=== PATIENT | female | born 1980 | race Asian ===

== ENCOUNTER 2017-10-27 18:28 | Emergency (ER) | payer BC, OTHER ==
[~2017-10-27] VITALS: Ht 170.2 cm; Wt 62.9 kg
[2017-10-27 18:32] VITALS: Ht 170.2 cm; Wt 62.9 kg
[2017-10-27 19:46] VITALS: TEMP 37.6
[2017-10-27] MEDS ORDERED: KETOROLAC TROMETHAMINE 30 MG/ML VIAL IV STA (19:46)
[2017-10-27] MEDS ORDERED: ACETAMINOPHEN 500 MG TAB PO STA (19:46)
[2017-10-27] MEDS ORDERED: ONDANSETRON INJ 2 MG/ML 2 ML VIAL IV STA (19:46)
--- NOTE | 2017-10-27 19:52 | EMERGENCY ROOM VISIT NOTE ---
History First contact with patient: 19:24 Chief Complaint: CHEST PAIN Stated Complaint: SOB, PAINS ON CHEST, THROAT Nursing Triage Summary: Patient had sorethroat, fever chills, cough for about 1 week. Has been On tylenol , motrin and Tamiflu. Tonight severe chest pain and SOB and became pale. Pain radiates from mid chest up throat and into right ear. Patient c/o trouble hearing out of right ear. History of Present Illness The patient is a 36 year old female who presents to the Emergency Room with complaints of flulike symptoms for the last 5 days. The patient's fever was as high as 104F. She has been alternating Tylenol and Motrin with persistent symptoms. She also complains of a sore throat, right ear pain, cough and difficulty breathing. She denies any sick contacts. She did receive her flu vaccine this year. She has seen to doctors for her symptoms. She was prescribed Hycodan cough syrup with minimal relief the patient apparently got very pale and was complaining of pain in her chest earlier this evening. The history is taken from the patient's significant other as she has lost her voice and will not talk. Review of Systems 10 system review performed and negative unless noted in HPI or below Past Medical/Surgical History Otherwise healthy Social History Smoking Status: Never Smoker Current/Historical Medications Scheduled Amoxicillin (Amoxil), 1 TAB PO BID Eye Drops (Eye Drops), 1 DROP OPB UD Oseltamivir Phosphate (Tamiflu), 1 TAB PO BID [Cough [place]], 1 DOSE PO PRN UD Scheduled PRN Acetaminophen (Tylenol), 1,000 MG PO Q6 PRN for Pain or Fever Ibuprofen (Motrin), 600 MG PO TID PRN for Pain or Fever Physical Exam Vital Signs Date Time Temp Pulse Resp B/P (MAP) Pulse Ox O2 Delivery O2 Flow Rate FiO2 10/27/17 21:52 82 16 128/72 97 Room Air 10/27/17 20:00 Room Air 10/27/17 19:56 92 10/27/17 19:46 37.6 78 17 121/73 96 Room Air 10/27/17 18:32 37.2 86 16 134/86 98 Room Air Physical Exam VITALS: Vitals are noted on the nurse's note and reviewed by myself. Vital signs stable. GENERAL: 36-year-old female, moderately acutely ill in appearance. SKIN: The skin was without rashes, erythema, edema, or bruising. HEAD: Normocephalic atraumatic. EARS: External auditory canals are clear. The right TM is erythematous, bulging with a purulent effusion. The left TM is slightly erythematous. No left sided effusion noted. The TMs are intact. EYES: Conjunctivae without injection, sclerae without icterus. Extraocular movements intact. NOSE: No sinus tenderness. MOUTH: Mucous membranes moist. Tonsils are not enlarged. Pharynx without erythema or exudate. Uvula midline. Airway patent. Tongue does not deviate. NECK: Supple without nuchal rigidity. Lymphadenopathy in the anterior cervical chain bilaterally.. Cervical spine is nontender. No JVD. HEART: Regular rate and rhythm without murmurs gallops or rubs. LUNGS: Clear to auscultation bilaterally without wheezes, rales or rhonchi. No accessory muscle use. ABDOMEN: Positive bowel sounds x 4.Soft, nontender, without organomegaly. No guarding or rebound tenderness. MUSCULOSKELETAL: No muscle atrophy, erythema, or edema noted. Strength 5/5 throughout. NEURO: Patient was alert and oriented to person place and time. Normal sensation to touch. No focal neurological deficits. Medical Decision & Procedures ER Provider Diagnostic Interpretation: CXR IMPRESSION: No acute process. Electronically signed by: Margarito Carroll M.D. 10/27/2017 8:31 PM Dictated Date/Time: 10/27/2017 8:30 PM Laboratory Results 10/27/17 19:43 Red Blood Count 4.44, Mean Corpuscular Volume 89.0, Mean Corpuscular Hemoglobin 30.0, Mean Corpuscular Hemoglobin Concent 33.7, Mean Platelet Volume 10.6, Neutrophils (%) (Auto) 69.0, Lymphocytes (%) (Auto) 20.8, Monocytes (%) (Auto) 9.0, Eosinophils (%) (Auto) 0.8, Basophils (%) (Auto) 0.1, Neutrophils # (Auto) 5.15, Lymphocytes # (Auto) 1.55, Monocytes # (Auto) 0.67, Eosinophils # (Auto) 0.06, Basophils # (Auto) 0.01 10/27/17 19:43 Test 10/27/17 19:30 10/27/17 19:43 10/27/17 21:46 Urine Color YELLOW Urine Appearance CLEAR (CLEAR) Urine pH 8.5 (4.5-7.5) Urine Specific [place] 1.012 (1.000-1.030) Urine Protein NEG (NEG) Urine Glucose (UA) NEG (NEG) Urine Ketones NEG (NEG) Urine Occult Blood 1+ (NEG) Urine Nitrite NEG (NEG) Urine Bilirubin NEG (NEG) Urine Urobilinogen NEG (NEG) Urine Leukocyte Esterase NEG (NEG) Urine WBC (Auto) 1-5 /hpf (0-5) Urine RBC (Auto) 5-10 /hpf (0-4) Urine Hyaline Casts (Auto) 0 /lpf (0-5) Urine Epithelial Cells (Auto) 10-20 /lpf (0-5) Urine Bacteria (Auto) NEG (NEG) Urine Test NEG (NEG) White Blood Count 7.46 K/uL (4.8-10.8) Red Blood Count 4.44 M/uL (4.2-5.4) Hemoglobin 13.3 g/dL (12.0-16.0) Hematocrit 39.5 % (37-47) Mean Corpuscular Volume 89.0 fL (80-100) Mean Corpuscular Hemoglobin 30.0 pg (25-34) Mean Corpuscular Hemoglobin Concent 33.7 g/dl (32-36) Platelet Count 176 K/uL (130-400) Mean Platelet Volume 10.6 fL (7.4-10.4) Neutrophils (%) (Auto) 69.0 % Lymphocytes (%) (Auto) 20.8 % Monocytes (%) (Auto) 9.0 % Eosinophils (%) (Auto) 0.8 % Basophils (%) (Auto) 0.1 % Neutrophils # (Auto) 5.15 K/uL (1.4-6.5) Lymphocytes # (Auto) 1.55 K/uL (1.2-3.4) Monocytes # (Auto) 0.67 K/uL (0.11-0.59) Eosinophils # (Auto) 0.06 K/uL (0-0.5) Basophils # (Auto) 0.01 K/uL (0-0.2) RDW Standard Deviation 39.2 fL (36.4-46.3) RDW Coefficient of Variation 12.0 % (11.5-14.5) Immature Granulocyte % (Auto) 0.3 % Immature Granulocyte # (Auto) 0.02 K/uL (0.00-0.02) Anion Gap 6.0 mmol/L (3-11) Est Creatinine Clear Calc Drug Dose 137.4 ml/min Estimated GFR () 138.7 Estimated GFR (Non- 119.7 BUN/Creatinine Ratio 5.7 (10-20) Calcium Level 9.4 mg/dl (8.5-10.1) Total Bilirubin 0.5 mg/dl (0.2-1) Aspartate Amino Transf (AST/SGOT) 18 U/L (15-37) Alanine Aminotransferase (ALT/SGPT) 20 U/L (12-78) Alkaline Phosphatase 58 U/L (45-117) Troponin I < 0.015 ng/ml (0-0.045) Total Protein 7.7 gm/dl (6.4-8.2) Albumin 3.8 gm/dl (3.4-5.0) Globulin 3.9 gm/dl (2.5-4.0) Albumin/Globulin Ratio 1.0 (0.9-2) Influenza Type A Antigen Neg for Influ A (NEG) Influenza Type B Antigen Neg for Influ B (NEG) Medications Administered Medications (Trade) Dose Ordered Sig/Fidel Route Start Time Stop Time Status Last Admin Dose Admin Sodium Chloride 1,000 ml @ 999 mls/hr Q1H1M ONCE IV 10/27/17 20:00 10/27/17 21:00 DC 10/27/17 19:57 999 MLS/HR Ondansetron HCl (Zofran Inj) 4 mg NOW STAT IV 10/27/17 19:46 10/27/17 19:49 DC 10/27/17 19:57 4 MG Ketorolac Tromethamine (Toradol Inj) 30 mg NOW STAT IV 10/27/17 19:46 10/27/17 19:49 DC 10/27/17 19:56 30 MG Acetaminophen (Tylenol Tab) 1,000 mg NOW STAT PO 10/27/17 19:46 10/27/17 19:49 DC 10/27/17 19:54 1,000 MG Amoxicillin (Amoxil Cap) 500 mg NOW ONCE PO 10/27/17 20:00 10/27/17 20:01 DC 10/27/17 19:55 500 MG Dexamethasone Sodium Phosphate (Decadron Inj) 10 mg NOW STAT IV 10/27/17 20:28 10/27/17 20:29 DC 10/27/17 20:45 10 MG Potassium Chloride (Klor-Con M10) 40 meq NOW STAT PO 10/27/17 21:48 10/27/17 21:49 DC 10/27/17 21:55 40 MEQ ECG Indication: chest pain Rate (beats per minute): 82 Rhythm: normal sinus ED Course Patient was seen and examined Vital signs including blood pressure were reviewed medications list was verified with patient Labs were obtained, and a saline lock was established An EKG was reviewed by me and my supervising physician The patient was medicated with Toradol, Tylenol, Zofran and hydrated with 1 L of normal saline Imaging was performed and reviewed Upon reevaluation, the patient was much more comfortable. We discussed her workup. She voiced understanding. She was given 1 dose of amoxicillin. She was also given a dose of potassium. I reviewed discharge instructions the patient. They voiced understanding and had no further questions. Medical Decision Differential diagnosis: Bronchitis, pneumonia, strep pharyngitis, viral pharyngitis, influenza , otitis media, sinusitis, meningitis This patient is a 36-year-old female that presents to the emergency department with flulike symptoms and fever for the last 5 days. On exam, she was mildly acutely ill. She did not have any signs of meningismus. Her right TM was significantly erythematous, bulging with a purulent effusion. I believe this is likely a viral illness that has led her to otitis media. I will treat the patient with a course of antibiotics for 10 days. The patient did have an episode of chest pain around 3:00 this afternoon. EKG was performed. No signs of ischemia were noted. Her troponin is negative. I do not suspect a pulmonary embolus that she does not have any difficulty breathing. She is not hypoxic. This is likely due to coughing. I believe she is stable to be discharged home with close follow-up. She and her significant other are comfortable with this plan, and she was discharged in good condition she will return with any worsening symptoms. This chart was completed in part utilizing [employer] Voice Recognition software. Attempts were made to minimize the grammatical errors, random word insertions, pronoun errors and incomplete sentences. Any formal questions or concerns about the content, text or information contained within the body of this dictation should be directly addressed to the provider for clarification. Medication Reconcilliation Current Medication List: was personally reviewed by me Blood Pressure Screening Patient's blood pressure: Normal blood pressure Impression Primary Impression: Otitis media Additional Impression: Viral syndrome Departure Information Dispostion Home / Self-Care Condition [employer] Prescriptions Amoxicillin (AMOXIL) 875 Mg Tab 1 TAB PO BID for 10 Days, #20 TAB Prov: Rosa Kennedy PA-C 10/27/17 Referrals No Doctor, Assigned (PCP) Patient Instructions ED Otitis Media Acute Adult, My [facility] Additional Instructions You have been evaluated in the emergency department for flulike symptoms and fever. Although this is likely viral, it has led to a bacterial ear infection. Please take the entire course of antibiotics. It is very important to follow up closely with her primary care physician. Please call tomorrow morning for a follow-up appointment. Please stay well hydrated. I would recommend sports drinks such as Gatorade. Ibuprofen 800 mg and/or Tylenol 1000 mg every 8 hours for pain and fever You may also alternate these medications for more effective pain relief: Ibuprofen --4 HRS--> Tylenol --4 HRS--> ibuprofen --4 HRS--> Tylenol .... Please do not hesitate to return to the emergency department with any new, worsening or concerning symptoms Problem Qualifiers
[2017-10-27 19:53] LABS: BASO % 0.1 %; BASO ABS # 0.01 K/uL (0-0.2); EOS % 0.8 %; EOS ABS # 0.06 K/uL (0-0.5); HEMATOCRIT 39.5 % (37-47); HEMOGLOBIN 13.3 g/dL (12.0-16.0); IG# 0.02 K/uL (0.00-0.02); LYMPH % 20.8 %; LYMPH ABS # 1.55 K/uL (1.2-3.4); MEAN CORPUSCULAR HGB CONC 33.7 g/dl (32-36); MEAN PLATELET VOLUME 10.6 fL (7.4-10.4); MONO ABS # 0.67 K/uL (0.11-0.59); NEUT ABS # 5.15 K/uL (1.4-6.5); PLATELET COUNT 176 K/uL (130-400); RED CELL DISTRIBUTION WIDTH SD 39.2 fL (36.4-46.3); WHITE BLOOD COUNT 7.46 K/uL (4.8-10.8)
[2017-10-27] MEDS ORDERED: OSEL30CA PO (19:54)
[2017-10-27] MEDS ORDERED: SODIUM CHLORIDE 0.9% 1000ML 1,000 ML IV ONE (20:00)
[2017-10-27] MEDS ORDERED: AMOXICILLIN 250 MG CAP PO ONE (20:00)
[2017-10-27] MEDS ORDERED: COUGH SURUP PO (20:02)
[2017-10-27] MEDS ORDERED: IBUP600T44 PO (20:02)
[2017-10-27] MEDS ORDERED: EYED OPB (20:02)
[2017-10-27] MEDS ORDERED: ACET-1256 PO (20:02)
[2017-10-27 20:11] LABS: ALBUMIN 3.8 gm/dl (3.4-5.0); ALT/SGPT 20 U/L (12-78); BLOOD UREA NITROGEN 3 mg/dl (7-18); CALCIUM 9.4 mg/dl (8.5-10.1); CARBON DIOXIDE 28 mmol/L (21-32); CREATININE 0.54 mg/dl (0.60-1.20); GLUCOSE 95 mg/dl (70-99); POTASSIUM 3.3 mmol/L (3.5-5.1); SODIUM 139 mmol/L (136-145)
[2017-10-27 20:16] LABS: ALKALINE PHOSPHATASE 58 U/L (45-117); AST/SGOT 18 U/L (15-37); TOTAL PROTEIN 7.7 gm/dl (6.4-8.2)
[2017-10-27] MEDS ORDERED: DEXAMETHASONE SOD INJ 4 MG/ML VIAL IV STA (20:28)
--- NOTE | 2017-10-27 20:33 | DIAGNOSTIC IMAGING REPORT ---
CHEST 2 VIEWS ROUTINE HISTORY: Atypical chest pain. Short of breath. COMPARISON: None. FINDINGS: No pneumothorax. No pleural effusions. The heart is normal in size. No focal lung consolidations to suggest pneumonia. Symmetric nodular densities within the mid lung zones are consistent with nipple shadows. No fractures within the visualized osseous structures. IMPRESSION: No acute process. Electronically signed by: Margarito Carroll M.D. 10/27/2017 8:31 PM Dictated Date/Time: 10/27/2017 8:30 PM
[2017-10-27] MEDS ORDERED: AMOX875T3 PO (21:45)
[2017-10-27] MEDS ORDERED: POTASSIUM CHLORIDE 10 MEQ TABCR PO STA (21:48)
[2017-10-27 21:52] VITALS: BP 128/72; PULSE 82; O2SAT 97
[2017-10-27 22:35] LABS: INFLUENZA B ANTIGEN Neg for Influ B (NEG)
== END 2017-10-27 22:20 | disposition home or self-care (01) ==
LOC: C.EDB 18:29
DX: H65.91 Unspecified nonsuppurative otitis media, right ear (principal); B34.9 Viral infection, unspecified; J02.9 Acute pharyngitis, unspecified

== ENCOUNTER 2017-10-29 19:58 | Emergency (ER) | payer OTHER ==
[~2017-10-29] VITALS: Ht 170.2 cm; Wt 69.2 kg
[~2017-10-29 19:58] MED LIST: ACET-1256 PO; AMOX875T3 PO; COUGH SURUP PO; EYED OPB; IBUP600T44 PO; OSEL30CA PO
[2017-10-29 20:04] VITALS: Ht 170.2 cm; Wt 69.2 kg
[2017-10-29] MEDS ORDERED: CEFD300C2 PO ×2 (20:25→20:44)
[2017-10-29] MEDS ORDERED: NORCO 5/325MG HOME PACK PO ONE (20:30)
[2017-10-29] MEDS ORDERED: CEFTRIAXONE SOD 350MG/ML 1 GM VIAL IM ONE (20:30)
[2017-10-29 20:47] VITALS: BP 113/76; PULSE 80; TEMP 36.6; O2SAT 97
--- NOTE | 2017-10-30 19:53 | EMERGENCY ROOM VISIT NOTE ---
History First contact with patient: 20:07 Chief Complaint: FLU LIKE SX Stated Complaint: FLU,EAR INFECTION,TREATED 2 DAYSAGO NOT ANY BETTER History of Present Illness The patient is a 36 year old female who presents to the Emergency Room with complaints of persistent and worsening ear pain. The patient has multiple recent physician appointments. She was initially seen Monday and Monday (6 and 4 days ago) at her primary care physician's office where she was diagnosed with the flu and started on Tamiflu. By Monday, 2 days ago, she came into the emergency department where she had an extensive workup, where ultimately was determined that she had otitis media. She states that today her pain is intolerable and rated a 10/10. She has not been able to sleep because of her pain. The patient has not had fever and has evidently been taking amoxicillin without relief of symptoms. She has completed her Tamiflu. Review of Systems More than 10 systems were reviewed and otherwise negative with the exception of history of present illness. Past Medical/Surgical History No chronic medical disease Family History No pertinent family history Social History Smoking Status: Never Smoker Occupation Status: employed Current/Historical Medications Scheduled Amoxicillin (Amoxil), 1 TAB PO BID Cefdinir (Omnicef), 300 MG PO Q12H Cefdinir (Omnicef), 300 MG PO Q12H Eye Drops (Eye Drops), 1 DROP OPB UD Oseltamivir Phosphate (Tamiflu), 1 TAB PO BID [Cough [place]], 1 DOSE PO PRN UD Scheduled PRN Acetaminophen (Tylenol), 1,000 MG PO Q6 PRN for Pain or Fever Ibuprofen (Motrin), 600 MG PO TID PRN for Pain or Fever Physical Exam Vital Signs Date Time Temp Pulse Resp B/P (MAP) Pulse Ox O2 Delivery O2 Flow Rate FiO2 10/29/17 20:47 36.6 80 18 113/76 97 10/29/17 20:04 36.6 74 18 97 Room Air Physical Exam VITALS: Vitals are noted on the nurse's note and reviewed by myself. Vital signs stable. GENERAL: Well-developed, well-nourished, female, who is in no acute distress and resting comfortably. Patient is cooperative with the examination. HEAD: Normocephalic atraumatic. EARS: External ear normal. External auditory canals clear. The right tympanic membrane is bulging and erythematous with purulent-appearing and materiall behind the tympanic membrane. The left tympanic membrane is erythematous. No mastoid tenderness. EYES: Pupils equal round and reactive to light and accommodation. Conjunctivae without injection, sclerae without icterus. Extraocular movements intact. NOSE: Patent, turbinates without inflammation or discharge. MOUTH: Mucous membranes moist. Tonsils are not enlarged. Pharynx without erythema, blood, or exudate. Uvula midline. Airway patent. NECK: Supple without nuchal rigidity. No lymphadenopathy. No thyromegaly. Cervical spine is nontender. HEART: Regular rate and rhythm without murmurs gallops or rubs. LUNGS: Clear to auscultation bilaterally without wheezes, rales or rhonchi. No retractions or accessory muscle use. Medical Decision & Procedures Medications Administered Medications (Trade) Dose Ordered Sig/Fidel Route Start Time Stop Time Status Last Admin Dose Admin Ceftriaxone Sodium (Rocephin Im) 1,000 mg NOW ONCE IM 10/29/17 20:30 10/29/17 20:31 DC 10/29/17 20:39 1,000 MG Acetaminophen/ Hydrocodone Bitart ([place] 5/325mg Home Pack) 1 homepack UD ONCE PO 10/29/17 20:30 10/29/17 20:31 DC 10/29/17 20:39 1 HOMEPACK ED Course Physical exam and history were performed. Nursing notes, EMR, and Medication List were personally reviewed. Patient appears to have a bilateral otitis media on examination. I reviewed her visit note from a few days ago, and based on that visit her ears seemed to be progressively worsening as opposed to improving. The patient was given 1 g IM Rocephin here in the department. I will transition her to Omnicef for her infection. The patient will also be given a home pack of Vicodin to help with rest tonight. She should follow with her primary care physician for a recheck of her symptoms. She was otherwise invited back with any new, worsening, or concerning symptoms. The chart was completed utilizing [employer] Voice Recognition Software. Grammatical errors, random word insertions, pronoun errors, and incomplete sentences are an occasional consequence of this system due to software limitations, ambient noise, and hardware issues. Any formal questions or concerns about the content, text, or information contained within the body of this dictation should be directly addressed to the provider for clarification. . Medical Decision Differential diagnosis: Etiologies such as viral syndrome, otitis, pharyngitis, pneumonia, influenza, meningitis, urinary tract infection, sepsis, bacteremia, as well as others were entertained. Impression Primary Impression: Bilateral otitis media Departure Information Dispostion Home / Self-Care Condition GOOD Prescriptions Cefdinir (OMNICEF) 300 Mg Cap 300 MG PO Q12H for 9 Days, #18 CAP Prov: Josue Walsh PA-C 10/29/17 Cefdinir (OMNICEF) 300 Mg Cap 300 MG PO Q12H for 9 Days, #18 CAP . Prov: Josue Walsh PA-C 10/29/17 Forms HOME CARE DOCUMENTATION FORM, IMPORTANT VISIT INFORMATION Patient Instructions My [facility] Additional Instructions You were seen and evaluated today on an emergency basis only. This is not a substitute for, or an effort to provide, complete comprehensive medical care. It is not possible to recognize and treat all injuries or illnesses in a single emergency department visit. For this reason it is recommended that you followup with your primary care physician this week for recheck of your condition. For baseline pain relief you may alternate ibuprofen and acetaminophen every 4 hours for pain control. Take 600 mg ibuprofen (Advil) and then 4 hours later take 1000 mg acetaminophen (Tylenol). Do not take more than 3000 mg acetaminophen in a single day. [place] (hydrocodone/acetaminophen) 5/325 mg (homepack) every 6 hours as needed for worsening breakthrough pain. Do not drink or drive on [place]. This medication will likely make you tired. Do not take [place] and Tylenol at the same time as both contain acetaminophen. [place] may cause constipation. You may wish to take an [id number] stool softener like Colace if this occurs. Take Omnicef 300 mg twice daily for the next 9 days Discontinue the amoxicillin You are welcome to return to the emergency department anytime with new, worsening, or concerning symptoms.
== END 2017-10-29 20:48 | disposition home or self-care (01) ==
LOC: C.EDB 19:59 → C.EDD 20:48
DX: H66.93 Otitis media, unspecified, bilateral (principal)

== ENCOUNTER 2017-12-11 21:46 | Emergency (ER) | payer OTHER ==
[~2017-12-11] VITALS: Ht 170.2 cm; Wt 63.1 kg
[~2017-12-11 21:46] MED LIST changes: -AMOX875T3 PO; +CEFD300C2 PO
[2017-12-11 21:53] VITALS: Ht 170.2 cm; Wt 63.1 kg
[2017-12-11] MEDS ORDERED: ONDANSETRON INJ 2 MG/ML 2 ML VIAL IV STA (22:22)
[2017-12-11] MEDS ORDERED: MoRPHine SULFATE 4 MG/ML 1 ML CARP\\VIAL IV STA (22:22)
[2017-12-11] MEDS ORDERED: SODIUM CHLORIDE 0.9% 1000ML 1,000 ML IV STA (22:22)
[2017-12-11 22:42] LABS: BASO % 0.2 %; BASO ABS # 0.01 K/uL (0-0.2); EOS % 0.5 %; EOS ABS # 0.03 K/uL (0-0.5); HEMATOCRIT 35.5 % (37-47); IG# 0.01 K/uL (0.00-0.02); LYMPH % 7.1 %; LYMPH ABS # 0.46 K/uL (1.2-3.4); MEAN CELL VOLUME 89.4 fL (80-100); MEAN CORPUSCULAR HEMOGLOBIN 30.2 pg (25-34); MEAN CORPUSCULAR HGB CONC 33.8 g/dl (32-36); MEAN PLATELET VOLUME 10.7 fL (7.4-10.4); MONO % 0.5 %; MONO ABS # 0.03 K/uL (0.11-0.59); NEUT % 91.5 %; NEUT ABS # 5.91 K/uL (1.4-6.5); PLATELET COUNT 122 K/uL (130-400); RED CELL DISTRIBUTION WIDTH CV 12.6 % (11.5-14.5); RED CELL DISTRIBUTION WIDTH SD 41.3 fL (36.4-46.3); WHITE BLOOD COUNT 6.45 K/uL (4.8-10.8)
--- NOTE | 2017-12-11 22:58 | DIAGNOSTIC IMAGING REPORT ---
ABDOMEN AND PELVIS CT WITHOUT CONTRAST CT DOSE: 841.28 mGy.cm HISTORY: uti, severe right flank pain TECHNIQUE: Multiaxial CT images of the abdomen and pelvis were performed without the use of intravenous and oral contrast according to the standard department stone protocol. A dose lowering technique was utilized adhering to the principles of ALARA. COMPARISON STUDY: None. FINDINGS: No renal or ureteral stones. Mild fullness within the right renal collecting system and right ureter without nirmal hydronephrosis. There is urothelial thickening within the right renal pelvis and right ureter with mild right periureteral edema. There is also moderate the bladder with surrounding inflammatory change. Normal left kidney. Calcification within the left deep pelvis consistent with phleboliths. A 2.3 cm right ovarian cyst. The uterus and left ovary are unremarkable. Suboptimal evaluation for bowel pathology due to the lack of intravenous and oral contrast. However, there is no definite bowel wall thickening or obstruction. Normal appendix. The lung bases are essentially clear. The unenhanced liver, spleen, adrenal glands, pancreas, and gallbladder are unremarkable. No significant retroperitoneal lymphadenopathy. IMPRESSION: 1. Moderate bladder wall thickening with surrounding fat stranding consistent with a cystitis. 2. There is also urothelial thickening within the right renal pelvis and right ureter with mild surrounding inflammatory change and mild fullness within the right renal collecting system. No nirmal hydronephrosis. This is consistent with a pyelitis/pyelonephritis. 3. No renal or ureteral stones. Electronically signed by: Margarito Carroll M.D. 12/11/2017 10:57 PM Dictated Date/Time: 12/11/2017 10:49 PM
[2017-12-11 23:01] LABS: ALBUMIN 3.6 gm/dl (3.4-5.0); CALCIUM 8.8 mg/dl (8.5-10.1); CREATININE 0.6 mg/dl (0.60-1.20); POTASSIUM 3.5 mmol/L (3.5-5.1)
[2017-12-11 23:03] LABS: TOTAL PROTEIN 6.7 gm/dl (6.4-8.2)
[2017-12-11] MEDS ORDERED: CEFTRIAXONE SOD INJ 1 GM ADDVIAL IV STA (23:05)
[2017-12-11] MEDS ORDERED: CIPR-304 PO (23:34)
[2017-12-11] MEDS ORDERED: PHEN95TA14 PO (23:35)
[2017-12-11 23:55] VITALS: TEMP 37.4
[2017-12-12] MEDS ORDERED: ONDA4TAB10 SL (00:28)
[2017-12-12] MEDS ORDERED: HYDR-5688 PO (00:28)
--- NOTE | 2017-12-12 00:29 | EMERGENCY ROOM VISIT NOTE ---
History First contact with patient: 22:08 Chief Complaint: URINARY SYMPTOMS Stated Complaint: INFECTION OF KIDNEY Nursing Triage Summary: Pt reports UTI starting Monday and PCP concerned for kidney infection. Placed on Cipro and using ibuprofen and tylenol. To have CT scan, but office closed. Told to come to ER if symptoms worsened. Pt reports high fever despite using Tylenol at 2100 and Iuprofen at 1830. Reporting right flank/back pain rated 9/10 with movement. History of Present Illness The patient is a 36 year old female who presents to the Emergency Room with complaints of right flank pain and urinary symptoms. The patient reports that she began having dysuria 3 days ago. The next day, she developed some cramping pain in her abdomen as well as right flank pain. She states the pain became severe throughout the day today, prompting her to go to her primary care provider's office. She states that they did a urinalysis there which confirmed she had a urinary tract infection. She was given ciprofloxacin and Azo. She has taken a dose of the antibiotics, Tylenol and ibuprofen tonight. They retook her temperature and it was 39.7C. She states she was told to come here if her fever worsened. She states the pain is in her right flank and she has a cramping pain in her abdomen. She rates the discomfort a 9/10. She denies changes in her bowel movements or vomiting. She has had some mild nausea. Review of Systems A complete 10 point review of systems was reviewed with the patient with pertinent positives and negatives as per history of present illness. All else were negative. Past Medical/Surgical History Medical Problems: (1) No significant active problems Surgical Problems: (1) No significant past surgical history Social History Smoking Status: Never Smoker Housing Status: lives with significant other Occupation Status: employed Current/Historical Medications Scheduled Ciprofloxacin HCl (Ciprofloxacin), 500 MG PO Q12 Ondasetron Odt (Zofran Odt), 4 MG SL Q6H Phenazopyridine Hcl (Azo Tabs), 1 DOSE PO DAILY Scheduled PRN Acetaminophen (Tylenol), 1,000 MG PO Q6 PRN for Pain or Fever Hydrocodone/Acetaminophen 5MG/325MG (Jackson 5MG/325MG), 1-2 TABLET PO Q4H PRN for Pain Ibuprofen (Motrin), 600 MG PO TID PRN for Pain or Fever Physical Exam Vital Signs Date Time Temp Pulse Resp B/P (MAP) Pulse Ox O2 Delivery O2 Flow Rate FiO2 12/12/17 00:36 80 20 114/72 98 12/11/17 23:55 37.4 68 20 114/59 99 Room Air 12/11/17 21:53 37.9 98 16 118/70 97 Room Air Physical Exam VITALS: Vitals are noted on the nurse's note and reviewed by myself. Vital signs stable. GENERAL: This is a 36-year-old female, in no acute distress, nontoxic in appearance, well-developed well-nourished. SKIN: The skin was without rashes. EARS: External auditory canals clear, tympanic membranes pearly cotton without erythema or effusion bilaterally. EYES: Pupils equal round and reactive to light and accommodation. MOUTH: Mucous membranes moist. NECK: Supple without nuchal rigidity. HEART: Regular rate and rhythm without murmurs gallops or rubs. LUNGS: Clear to auscultation bilaterally without wheezes, rales or rhonchi. ABDOMEN: Positive bowel sounds x 4. Soft, mild tenderness in the right lower abdomen. No guarding or rebound tenderness. Positive right CVA tenderness. NEURO: Patient was alert and oriented to person place and time. Medical Decision & Procedures ER Provider Diagnostic Interpretation: ABDOMEN AND PELVIS CT WITHOUT CONTRAST CT DOSE: 841.28 mGy.cm HISTORY: uti, severe right flank pain TECHNIQUE: Multiaxial CT images of the abdomen and pelvis were performed without the use of intravenous and oral contrast according to the standard department stone protocol. A dose lowering technique was utilized adhering to the principles of ALARA. COMPARISON STUDY: None. FINDINGS: No renal or ureteral stones. Mild fullness within the right renal collecting system and right ureter without nirmal hydronephrosis. There is urothelial thickening within the right renal pelvis and right ureter with mild right periureteral edema. There is also moderate the bladder with surrounding inflammatory change. Normal left kidney. Calcification within the left deep pelvis consistent with phleboliths. A 2.3 cm right ovarian cyst. The uterus and left ovary are unremarkable. Suboptimal evaluation for bowel pathology due to the lack of intravenous and oral contrast. However, there is no definite bowel wall thickening or obstruction. Normal appendix. The lung bases are essentially clear. The unenhanced liver, spleen, adrenal glands, pancreas, and gallbladder are unremarkable. No significant retroperitoneal lymphadenopathy. IMPRESSION: 1. Moderate bladder wall thickening with surrounding fat stranding consistent with a cystitis. 2. There is also urothelial thickening within the right renal pelvis and right ureter with mild surrounding inflammatory change and mild fullness within the right renal collecting system. No nirmal hydronephrosis. This is consistent with a pyelitis/pyelonephritis. 3. No renal or ureteral stones. Laboratory Results 12/11/17 22:25 Red Blood Count 3.97, Mean Corpuscular Volume 89.4, Mean Corpuscular Hemoglobin 30.2, Mean Corpuscular Hemoglobin Concent 33.8, Mean Platelet Volume 10.7, Neutrophils (%) (Auto) 91.5, Lymphocytes (%) (Auto) 7.1, Monocytes (%) (Auto) 0.5, Eosinophils (%) (Auto) 0.5, Basophils (%) (Auto) 0.2, Neutrophils # (Auto) 5.91, Lymphocytes # (Auto) 0.46, Monocytes # (Auto) 0.03, Eosinophils # (Auto) 0.03, Basophils # (Auto) 0.01 12/11/17 22:25 Test 12/11/17 22:25 White Blood Count 6.45 K/uL (4.8-10.8) Red Blood Count 3.97 M/uL (4.2-5.4) Hemoglobin 12.0 g/dL (12.0-16.0) Hematocrit 35.5 % (37-47) Mean Corpuscular Volume 89.4 fL (80-100) Mean Corpuscular Hemoglobin 30.2 pg (25-34) Mean Corpuscular Hemoglobin Concent 33.8 g/dl (32-36) Platelet Count 122 K/uL (130-400) Mean Platelet Volume 10.7 fL (7.4-10.4) Neutrophils (%) (Auto) 91.5 % Lymphocytes (%) (Auto) 7.1 % Monocytes (%) (Auto) 0.5 % Eosinophils (%) (Auto) 0.5 % Basophils (%) (Auto) 0.2 % Neutrophils # (Auto) 5.91 K/uL (1.4-6.5) Lymphocytes # (Auto) 0.46 K/uL (1.2-3.4) Monocytes # (Auto) 0.03 K/uL (0.11-0.59) Eosinophils # (Auto) 0.03 K/uL (0-0.5) Basophils # (Auto) 0.01 K/uL (0-0.2) RDW Standard Deviation 41.3 fL (36.4-46.3) RDW Coefficient of Variation 12.6 % (11.5-14.5) Immature Granulocyte % (Auto) 0.2 % Immature Granulocyte # (Auto) 0.01 K/uL (0.00-0.02) Urine Color DK YELLOW Urine Appearance CLEAR (CLEAR) Urine pH 6.5 (4.5-7.5) Urine Specific [place] 1.012 (1.000-1.030) Urine Protein 1+ (NEG) Urine Glucose (UA) NEG (NEG) Urine Ketones NEG (NEG) Urine Occult Blood 3+ (NEG) Urine Nitrite POS (NEG) Urine Bilirubin NEG (NEG) Urine Urobilinogen NEG (NEG) Urine Leukocyte Esterase MODERATE (NEG) Urine WBC (Auto) >30 /hpf (0-5) Urine RBC (Auto) >30 /hpf (0-4) Urine Hyaline Casts (Auto) 1-5 /lpf (0-5) Urine Epithelial Cells (Auto) 5-10 /lpf (0-5) Urine Bacteria (Auto) NEG (NEG) Urine Yeast (Auto) PRESENT (NONE PRSENT) Urine Test NEG (NEG) Anion Gap 8.0 mmol/L (3-11) Est Creatinine Clear Calc Drug Dose 123.7 ml/min Estimated GFR () 134.0 Estimated GFR (Non- 115.6 BUN/Creatinine Ratio 28.4 (10-20) Calcium Level 8.8 mg/dl (8.5-10.1) Total Bilirubin 0.5 mg/dl (0.2-1) Aspartate Amino Transf (AST/SGOT) 11 U/L (15-37) Alanine Aminotransferase (ALT/SGPT) 15 U/L (12-78) Alkaline Phosphatase 43 U/L (45-117) Total Protein 6.7 gm/dl (6.4-8.2) Albumin 3.6 gm/dl (3.4-5.0) Globulin 3.1 gm/dl (2.5-4.0) Albumin/Globulin Ratio 1.2 (0.9-2) Medications Administered Medications (Trade) Dose Ordered Sig/Fidel Route Start Time Stop Time Status Last Admin Dose Admin Sodium Chloride 1,000 ml @ 999 mls/hr Q1H1M STAT IV 12/11/17 22:22 12/11/17 23:22 DC 12/11/17 22:34 999 MLS/HR Ondansetron HCl (Zofran Inj) 4 mg NOW STAT IV 12/11/17 22:22 12/11/17 22:24 DC 12/11/17 22:35 4 MG Morphine Sulfate (MoRPHine SULFATE INJ) 4 mg NOW STAT IV 12/11/17 22:22 12/11/17 22:24 DC 12/11/17 22:35 4 MG Ceftriaxone Sodium (Rocephin Inj) 1 gm NOW STAT IV 12/11/17 23:05 12/11/17 23:06 DC 12/11/17 23:12 1 GM Ondansetron HCl (ZOFRAN ODT 4MG Home Pack) 1 homepack UD ONCE PO 12/12/17 00:30 3 00:31 DC 12/12/17 00:34 1 HOMEPACK Acetaminophen/ Hydrocodone Bitart (Jackson 5/325mg Home Pack) 1 homepack UD ONCE PO 12/12/17 00:30 12/12/17 00:31 DC 12/12/17 00:34 1 HOMEPACK ED Course The patient was evaluated as above. Labs were drawn and IV access was obtained. Patient was medicated with 1 L normal saline solution, 4 mg morphine IV and [address] of the abdomen and pelvis was performed and read by radiology as above. Patient was reevaluated and findings were discussed. She is feeling much better. Discharge instructions were reviewed with the patient. The patient verbalized understanding of my assessment and treatment plan and was discharged home in good condition. Medical Decision Differential diagnosis includes kidney stone, pyelonephritis, UTI, appendicitis , cholecystitis, among others. The patient is a 36-year-old female who presents today complaining of flank pain and urinary symptoms. Labs revealed no leukocytosis or significant anemia. Creatinine was within normal limits. CT was performed and showed no evidence of kidney stone. Urinalysis was suggestive of infection, with positive nitrite, leukocyte esterase, WBCs. Culture is pending. Urine was negative. Patient was given a dose of IV Rocephin. She is not vomiting. Fever improved after treatment with Toradol. Patient will continue the ciprofloxacin prescribed to her and was instructed to follow-up with her PCP for recheck. She was advised to return here with worsening symptoms. The patient's case was reviewed with Dr. Mcneil, ED attending physician, who agreed with my assessment and treatment plan. Based on the patient's presentation and work up, I feel the patient is stable for outpatient treatment. The patient was educated to return to the emergency department for any worsening of their current condition or new/concerning symptoms. She will follow up with her PCP. Medication Reconcilliation Current Medication List: was personally reviewed by me Blood Pressure Screening Patient's blood pressure: Normal blood pressure Impression Primary Impression: Pyelonephritis Departure Information Dispostion Home / Self-Care Condition GOOD Prescriptions Hydrocodone/Acetaminophen 5MG/325MG (Jackson 5MG/325MG) Tab 1-2 TABLET PO Q4H Y for Pain, #12 TAB For Initial Treatment Prov: Clarita Stinson PA-C 12/12/17 Ondasetron Odt (ZOFRAN ODT) 4 Mg Tab 4 MG SL Q6H for Nausea, #12 TAB Prov: Clarita Stinson PA-C 12/12/17 Referrals Jude Oro M.D. (PCP) Patient Instructions My [facility] Additional Instructions You have been treated in the Emergency Department today for a Kidney infection. You have received pain medicine in the emergency department which impairs your ability to operate a vehicle. It is illegal for you to drive after receiving these medicines. Continue the ciprofloxacin as prescribed. You have been prescribed Jackson to be used for pain control. This is a narcotic medication. You cannot drive or consume alcohol while on this medicine. This medicine should only be used for pain that cannot be controlled with over-the- counter pain medicines. You have been prescribed Zofran to be used for any nausea or vomiting. Take as prescribed. For pain control, you can use the following [id number] medicines (if >12 yo): - Regular strength (325mg/tab) Tylenol (acetaminophen) 2 tabs every 4-6 hours as needed. Do not exceed 12 tablets in a 24 hour period. Avoid taking more than 4 grams (4000 mg) of Tylenol per day. This includes any other sources of acetaminophen you may take on a regular basis. - Regular strength (200 mg/tab) Advil (ibuprofen) 1-2 tabs every 4-6 hours as needed. Do not exceed a dose of 3200 mg per day. Return to the emergency department with worsening pain, vomiting not controlled by the medication, dizziness/lightheadedness or other new/concerning symptoms.
[2017-12-12] MEDS ORDERED: ONDANSETRON HOME PACK 4MG OD TAB PO ONE (00:30)
[2017-12-12] MEDS ORDERED: NORCO 5/325MG HOME PACK PO ONE (00:30)
[2017-12-12 00:36] VITALS: BP 114/72; PULSE 80; O2SAT 98
== END 2017-12-12 00:38 | disposition home or self-care (01) ==
LOC: C.EDB 21:46 → C.EDA 12-12 00:38
DX: N12 Tubulo-interstitial nephritis, not specified as acute or chronic (principal)

== ENCOUNTER 2017-12-14 21:04 | Inpatient (IN) | payer OTHER ==
[~2017-12-14] VITALS: Ht 170.2 cm; Wt 61.9 kg
[~2017-12-14 21:04] MED LIST changes: -CEFD300C2 PO; +CIPR-304 PO; -COUGH SURUP PO; -EYED OPB; +HYDR-5688 PO; +ONDA4TAB10 SL; -OSEL30CA PO; +PHEN95TA14 PO
[2017-12-14 21:30] VITALS: BP 118/79; PULSE 68; TEMP 37.2; O2SAT 96; Ht 170.2 cm; Wt 61.9 kg
[2017-12-14] MEDS ORDERED: ONDANSETRON INJ 2 MG/ML 2 ML VIAL IV PRN (22:00)
[2017-12-14] MEDS ORDERED: ALUMINUM/MAGNESIUM/SIMETH (MAALOX MAX) 30 ML UDC PO PRN (22:00)
[2017-12-14] MEDS ORDERED: ZOLPIDEM TARTRATE 5 MG TAB PO PRN (22:00)
[2017-12-14] MEDS ORDERED: IBUPROFEN 600 MG TAB PO PRN (22:00)
[2017-12-14] MEDS ORDERED: POLYETHYLENE (MIRALAX) 17 GM PACK PO PRN (22:00)
[2017-12-14] MEDS ORDERED: HYDROCODONE/ACETAMIN 5/325MG TAB PO PRN (22:00)
[2017-12-14] MEDS ORDERED: ACETAMINOPHEN 325 MG TAB PO PRN (22:00)
[2017-12-14] MEDS ORDERED: MAGNESIUM HYDROXIDE SUSP 30 ML UDC PO PRN (22:00)
[2017-12-14] MEDS ORDERED: MoRPHine SULFATE 2 MG/ML CARP IV PRN (22:00)
--- NOTE | 2017-12-14 22:07 | History and Physical ---
History & Physical Date & Time of Service: Dec 14, 2017 at 21:57 Chief Complaint: Pyelonephritis Primary Care Physician: No Doctor, Assigned History of Present Illness Source: patient 36 y/o F Hx renal calculi. Presented to the ER a few days prior for dysuria, R back pain, fevers, rigors. She was diagnosed with pyelonephritis and placed on Cipro. Despite compliance she continues to spike fevers. She returned visited her primary MD today and was referred to the hospital for IV antibiotics due to Cipro failure. A CT abdomen obtained on 12/11 was consistent with early R pyelonephritis. The pot has not had nausea or vomiting. Past Medical/Surgical History Renal calculi Social History Smoking Status: Never Smoker Occupational Status: employed Allergies Coded Allergies: No Known Allergies (Unverified , 10/27/17) Home Medications Scheduled Ciprofloxacin HCl (Ciprofloxacin), 500 MG PO Q12 Ondasetron Odt (Zofran Odt), 4 MG SL Q6H Phenazopyridine Hcl (Azo Tabs), 1 DOSE PO DAILY Scheduled PRN Acetaminophen (Tylenol), 1,000 MG PO Q6 PRN for Pain or Fever Hydrocodone/Acetaminophen 5MG/325MG (Maury 5MG/325MG), 1-2 TABLET PO Q4H PRN for Pain Ibuprofen (Motrin), 600 MG PO TID PRN for Pain or Fever Review of Systems Constitutional: + fever, + chills, No sweats Eyes: No worsening of vision ENT: No hearing loss, No unusual epistaxis, No nasal symptoms Respiratory: No cough, No sputum, No wheezing Cardiovascular: No chest pain, No orthopnea, No PND Abdomen: No pain, No nausea, No vomiting Musculoskeletal: + problem reported (R back/flank pain), No joint pain Genitourinary - Female: No dysuria, No urinary frequency, No urinary urgency Neurologic: No memory loss, No paralysis, No weakness Psychiatric: No depression symptoms Endocrine: No fatigue Hematologic / Lymphatic: No abnormal bleeding/bruising Integumentary: No rash Allergic / Immunologic: No environmental allergies Physical Exam General Appearance: WD/WN, no apparent distress Head: normocephalic Eyes: normal inspection, EOMI ENT: normal ENT inspection, pharynx normal Neck: supple, no JVD Respiratory/Chest: chest non-tender, lungs clear, normal breath sounds Cardiovascular: regular rate, rhythm, no edema, no gallop Abdomen/GI: normal bowel sounds, non tender, soft Back: + right CVA tenderness Extremities/Musculoskelatal: normal inspection, no calf tenderness, normal capillary refill Neurologic/Psych: skin lifter bacon II-XII nml as tested, no motor/sensory deficits, alert, oriented x 3 Skin: normal color, warm/dry, no rash Diagnostics Diagnostic Radiology CT abdomen: 1. Moderate bladder wall thickening with surrounding fat stranding consistent with a cystitis. 2. There is also urothelial thickening within the right renal pelvis and right ureter with mild surrounding inflammatory change and mild fullness within the right renal collecting system. No nirmal hydronephrosis. This is consistent with a pyelitis/pyelonephritis. 3. No renal or ureteral stones. Impression Assessment and Plan 36 y/o F Hx renal calculi. Presented to the ER a few days prior for dysuria, R back pain, fevers, rigors. She was diagnosed with pyelonephritis and placed on Cipro. Despite compliance she continues to spike fevers. She returned visited her primary MD today and was referred to the hospital for IV antibiotics due to Cipro failure. A CT abdomen obtained on 12/11 was consistent with early R pyelonephritis. Pyelonephritis - initial cultures may have been contaminated - reordered and pt placed on Ceftriaxone. Will prescribe Tramadol for pain control, avoiding Ibuprofen and Tylenol to trend temp. Full code - SCDs Total time for this admit including review of labs, meds, imaging, records - discussion with pt and ER attending - 38 min Resuscitation Status VTE Prophylaxis Will order VTE Prophylaxis: Yes
[2017-12-14] MEDS ORDERED: TRAMADOL HCL 50 MG TAB PO PRN (22:45)
[2017-12-14 22:53] VITALS: BP 144/82; PULSE 66; TEMP 37.1; O2SAT 97
[2017-12-14] MEDS ORDERED: CEFTRIAXONE SOD INJ 1 GM in DEXTROSE 5% ADD-VANTAGE 50ML 50 ML IV SCH (23:00)
[2017-12-14] MEDS: D5NSS + 20MEQ KCL 1,000 ML IV SCH (23:39)
[2017-12-15] MEDS: D5NSS + 20MEQ KCL 1,000 ML IV SCH (05:42)
[2017-12-15 06:54] LABS: HEMATOCRIT 34.1 % (37-47); HEMOGLOBIN 11.6 g/dL (12.0-16.0); MEAN CELL VOLUME 88.6 fL (80-100); MEAN CORPUSCULAR HEMOGLOBIN 30.1 pg (25-34); MEAN PLATELET VOLUME 10.4 fL (7.4-10.4); PLATELET COUNT 152 K/uL (130-400); RED CELL DISTRIBUTION WIDTH CV 12.5 % (11.5-14.5); RED CELL DISTRIBUTION WIDTH SD 40.1 fL (36.4-46.3); WHITE BLOOD COUNT 4.42 K/uL (4.8-10.8)
[2017-12-15 07:27] LABS: CALCIUM 8.3 mg/dl (8.5-10.1); CREATININE 0.55 mg/dl (0.60-1.20); POTASSIUM 3.6 mmol/L (3.5-5.1)
[2017-12-15 07:32] VITALS: BP 114/77; PULSE 64; TEMP 37; O2SAT 98
[2017-12-15 15:06] VITALS: BP 119/82; PULSE 64; TEMP 36.7; O2SAT 98
--- NOTE | 2017-12-15 16:14 | Progress Note ---
Subjective Date of Service: Dec 15, 2017. Subjective Pt evaluation today including: conversation w/ patient, conversation w/ family , physical exam, chart review, lab review, review of studies, review of inpatient medication list No spiking fever, tolerate diet, no abdominal pain, Problem List Medical Problems: (1) Bilateral otitis media Status: Acute (2) Otitis media Status: Acute (3) Pyelonephritis Status: Acute (4) Viral syndrome Status: Acute Review of Systems Constitutional: No fever, No chills, No sweats, No weight loss, No weakness, No fatigue, No problem reported Eyes: No worsening of vision, No eye pain, No redness, No discharge, No diplopia ENT: No hearing loss, No unusual epistaxis, No nasal symptoms, No sore throat, No tinnitus, No dental problems, No trouble swallowing Respiratory: No cough, No sputum, No wheezing, No shortness of breath, No dyspnea on exertion, No dyspnea at rest, No hemoptysis Cardiac: No chest pain, No orthopnea, No PND, No edema, No claudication, No palpitations Abdomen: No pain, No nausea, No vomiting, No diarrhea, No constipation Musculoskeletal: No joint pain, No muscle pain, No swelling, No calf pain Female : No dysuria, No urinary frequency, No hematuria, No incontinence, No abnormal vaginal bleeding, No vaginal discharge Neurologic: No memory loss, No paralysis, No weakness, No numbness/tingling, No vertigo, No balance problems Psychiatric: No depression symptoms, No anhedonism, No anxiety, No insomnia, No substance abuse Heme: No abnormal bleeding/bruising, No clotting problems, No swollen lymph nodes, No night sweats Endo: No fatigue, No excessive thirst, No excessive urination Skin: No rash, No itch, No new/changing skin lesions, No color change, No bleeding Objective Vital Signs Date Time Temp Pulse Resp B/P (MAP) Pulse Ox O2 Delivery O2 Flow Rate FiO2 12/15/17 15:06 36.7 64 18 119/82 (94) 98 Room Air 12/15/17 07:32 37.0 64 18 114/77 (89) 98 Room Air 12/15/17 07:20 Room Air 12/14/17 23:00 Room Air 12/14/17 22:53 37.1 66 14 144/82 (102) 97 Room Air 12/14/17 21:30 37.2 68 16 118/79 96 Room Air 12/14/17 21:30 37.2 68 16 118/79 (92) 96 Room Air Physical Exam General Appearance: WD/WN, no apparent distress Eyes: normal inspection, PERRL, EOMI, sclerae normal ENT: normal ENT inspection, hearing grossly normal, pharynx normal Neck: supple, no adenopathy, thyroid normal, no JVD, no carotid bruits, trachea midline Respiratory/Chest: chest non-tender, lungs clear, normal breath sounds, no respiratory distress, no accessory muscle use Cardiovascular: regular rate, rhythm, no edema, no gallop, no JVD, no murmur Abdomen: normal bowel sounds, non tender, soft, no organomegaly, no pulsatile mass Extremities: normal range of motion, non-tender, normal inspection, no pedal edema, no calf tenderness, normal capillary refill, pelvis stable Neurologic/Psychiatric: 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 as tested, no motor/sensory deficits, alert, normal mood/affect, oriented x 3 Skin: normal color, warm/dry, no rash Lymphatic: no adenopathy Laboratory Results Last 24 Hours Test 12/15/17 06:37 White Blood Count 4.42 K/uL Red Blood Count 3.85 M/uL Hemoglobin 11.6 g/dL Hematocrit 34.1 % Mean Corpuscular Volume 88.6 fL Mean Corpuscular Hemoglobin 30.1 pg Mean Corpuscular Hemoglobin Concent 34.0 g/dl RDW Standard Deviation 40.1 fL RDW Coefficient of Variation 12.5 % Platelet Count 152 K/uL Mean Platelet Volume 10.4 fL Sodium Level 139 mmol/L Potassium Level 3.6 mmol/L Chloride Level 109 mmol/L Carbon Dioxide Level 23 mmol/L Anion Gap 7.0 mmol/L Blood Urea Nitrogen 7 mg/dl Creatinine 0.55 mg/dl Est Creatinine Clear Calc Drug Dose 134.9 ml/min Estimated GFR () 137.9 Estimated GFR (Non- 119.0 BUN/Creatinine Ratio 12.9 Random Glucose 103 mg/dl Calcium Level 8.3 mg/dl Magnesium Level 2.2 mg/dl Assessment and Plan 36 y/o F Hx renal calculi admitted on December 14, 2017 because of pyelonephritis failed outpatient treatment Per report , she presented to the ER a few days prior for dysuria, R back pain, fevers, rigors. She was diagnosed with pyelonephritis and placed on Cipro. She has been compliance taking medicine, however history she continues to spike fevers. Denies fever was more than 38 in PCPs office and therefore she was sent to hospital emergency room PCP referral her to emergency room is because of need for IV antibiotics due to Cipro failure. A CT abdomen obtained on 12/11 was consistent with early R pyelonephritis, however on December 11 , and in the emergency room yesterday there was no blood culture sent Pyelonephritis - initial cultures may have been contaminated Has reordered Continue ceftriaxone History of kidney stone Acute cystitis. Discussed with patient and her about 40 minutes regarding patient's conditions and care plan, there was no blood culture sent, there is no sense to resend blood culture now because antibiotic has started, I advised the parents that need to watch 24- 36 hrs in hospital observation and IV antibiotic. if she has no spiking fever we will could be discharged her home with oral antibiotic of Ceftin, patient was once threatening AMA, I told them that pyelonephritis without treated properly may cause kidney failure Continued [facility] stay due to: multiple IV medications needed Discharge planning: home
--- NOTE | 2017-12-15 17:01 | Discharge Summary ---
Discharge Summary Date of Service Dec 15, 2017. Discharge Summary Admission Date: Dec 14, 2017 at 21:04 Discharge Date: Dec 15, 2017 Discharge Disposition: Home (Left AGAINST MEDICAL ADVICE) Principal Diagnosis: Pyelonephritis Problems/Secondary Diagnoses: Hx renal calculi Acute cystitis. Acute pyelonephritis Procedures: No Consultations: No Discharge Exam See today's progress note Review of Systems: Constitutional: + problem reported (Today's progress note) Physical Exam: General Appearance: + pertinent finding (Today's progress) Hospital Course 36 y/o F Hx renal calculi admitted on December 14, 2017 because of pyelonephritis failed outpatient treatment Per report , she presented to the ER a few days prior for dysuria, R back pain, fevers, rigors. She was diagnosed with pyelonephritis and placed on Cipro. She has been compliance taking medicine, however history she continues to spike fevers. Denies fever was more than 38 in PCPs office and therefore she was sent to hospital emergency room PCP referral her to emergency room is because of need for IV antibiotics due to Cipro failure. A CT abdomen obtained on 12/11 was consistent with early R pyelonephritis, however on December 11 , and in the emergency room yesterday there was no blood culture sent Pyelonephritis - initial cultures may have been contaminated Has reordered Continue ceftriaxone History of kidney stone Acute cystitis. Discussed with patient and her about 40 minutes regarding patient's conditions and care plan, there was no blood culture sent, there is no sense to resend blood culture now because antibiotic has started, I advised the parents that need to watch 24- 36 hrs in hospital observation and IV antibiotic. if she has no spiking fever we will could be discharged her home with oral antibiotic of Ceftin, patient was once threatening AMA, I told them that pyelonephritis without treated properly may cause kidney failure When I recheck patient on 4:45 this afternoon, nurses report the patient and her walked out 30 minutes ago RN did give her AMA form to sign however they probably signed it but did not return back, PCP please continue follow-up Total Time Spent: Greater than 30 minutes This includes examination of the patient, discharge planning, medication reconciliation, and communication with other providers. Discharge Instructions Please refer to the electronic Patient Visit Report (Discharge Instructions) for additional information.
== END 2017-12-15 16:20 | disposition left against medical advice (07) | DRG 690 ==
LOC: C.MSN 21:04 → OBSVTOIN 21:04
PROVIDERS: ADMIT Internal Medicine; ATTEND Hospitalist
DX: N10 Acute pyelonephritis (principal); Z87.442 Personal history of urinary calculi